=== PATIENT | male | born 1975 | race Two or more races ===

== ENCOUNTER 2022-11-11 | Outpatient (CLI) | payer OTHER | END 2022-11-11 00:15 | disposition home or self-care (01) | LOC: PPH VACUNA | PROVIDERS: ATTEND Emergency Medicine Pediatric Emergency Medicine | DX: Z23 Encounter for immunization (principal) ==

== ENCOUNTER 2022-11-11 | Outpatient (CLI) | payer OTHER | END 2022-11-11 00:15 | disposition home or self-care (01) | LOC: PPH VACUNA | PROVIDERS: ATTEND Emergency Medicine Pediatric Emergency Medicine | DX: Z23 Encounter for immunization (principal) ==